=== PATIENT | male | born 1975 | race Caucasian/White ===

== ENCOUNTER 2017-06-14 11:30 | Inpatient (IN) | payer BC ==
[2017-06-14] VITALS (8 sets, daily range): BP systolic 147–168; BP diastolic 52–89; PULSE 72–80; TEMP 98–98.3
[~2017-06-14] VITALS: Ht 190.5 cm; Wt 127.9 kg
[2017-06-14] MEDS ORDERED: LEVEMIR100 U/ML SQ (14:18)
[2017-06-14 14:43] LABS: HEMATOCRIT 34.2 % (42.0-52.0); HEMOGLOBIN 10.9 g/dl (13.5-18.0); MEAN CELL VOLUME 86 fl (80.0-100.0); MEAN CORPUSCULAR HEMOGLOBIN 27 pg (27.0-31.0); MEAN CORPUSCULAR HGB CONC 32 g/dl (33.0-37.0); MEAN PLATELET VOLUME 8.9 fl (7.4-10.4); PLATELET COUNT 394 K/mm3 (130-400); RED BLOOD COUNT 3.98 M/mm3 (4.20-5.60); REDCELL DISTRIBUTION WIDTH-CV 15.5 % (11.5-14.5); WHITE BLOOD COUNT 11.6 K/mm3 (4.8-10.8)
[2017-06-14 14:44] LABS: ADD PATHOLOGY DIFF REVIEW NO
[2017-06-14 14:50] LABS: INR 1.3 (0.8-3.0); PROTHROMBIN TIME 14.1 SECONDS (9.7-12.8)
[2017-06-14 14:53] LABS: ADJUSTED CALCIUM 9.4 mg/dL (8.4-10.2); ALBUMIN 2.9 gm/dL (3.5-5.0); BILIRUBIN,TOTAL 1.1 mg/dL (0.0-1.0); CALCIUM 8.5 mg/dL (8.4-10.2); CREATININE, serum 0.91 mg/dL (0.66-1.25); MAGNESIUM 1.7 mg/dL (1.6-2.3); POTASSIUM 3.6 mmol/L (3.4-5.0)
[2017-06-14 15:12] LABS: ANISOCYTOSIS 1+; BAND 3 % (0-10); EOSINOPHIL 2 % (0-4); NEUTROPHILS 76 % (42.0-75.2); TOTAL CELLS COUNTED 100
[2017-06-14 15:13] LABS: PLATELET ESTIMATE INCREASED (NORMAL)
[2017-06-15 00:08] LABS: PH 5 (5-8); SQUAMOUS EPITHELIAL None Seen /hpf; URINE APPEARANCE Clear; URINE BACTERIA None Seen /hpf; URINE BILIRUBIN Negative (NEGATIVE); URINE BLOOD Negative (NEGATIVE); URINE COLOR Yellow; URINE GLUCOSE Negative (NEGATIVE); URINE KETONE Negative (NEGATIVE); URINE RBC 0-2 /hpf; URINE UROBILINOGEN Negative (NEGATIVE); URINE WBC 0-2 /hpf
[2017-06-15 01:00] VITALS: BP 159/81; PULSE 72; TEMP 98.2
[2017-06-15 05:30] VITALS: BP 168/91; PULSE 66; TEMP 98.5
[2017-06-15 07:10] LABS: MEAN CELL VOLUME 87 fl (80.0-100.0); MEAN CORPUSCULAR HGB CONC 32 g/dl (33.0-37.0); PLATELET COUNT 358 K/mm3 (130-400); RED BLOOD COUNT 3.66 M/mm3 (4.20-5.60); REDCELL DISTRIBUTION WIDTH-CV 15.5 % (11.5-14.5); WHITE BLOOD COUNT 9.3 K/mm3 (4.8-10.8)
[2017-06-15 07:12] LABS: ADD PATHOLOGY DIFF REVIEW NO; HEMATOCRIT 31.7 % (42.0-52.0); HEMOGLOBIN 10.1 g/dl (13.5-18.0); MEAN CORPUSCULAR HEMOGLOBIN 28 pg (27.0-31.0)
[2017-06-15 07:25] LABS: CALCIUM 7.9 mg/dL (8.4-10.2); CREATININE, serum 0.88 mg/dL (0.66-1.25); POTASSIUM 3.2 mmol/L (3.4-5.0)
[2017-06-15 08:36] LABS: BAND 21 % (0-10); BASOPHIL 3 % (0-2); EOSINOPHIL 2 % (0-4); METAMYELOCYTE 1 % (0-0); NEUTROPHILS 53 % (42.0-75.2); TOTAL CELLS COUNTED 100
[2017-06-15 08:38] LABS: PLATELET ESTIMATE NORMAL (NORMAL); TOXIC GRANULATION PRESENT
[2017-06-15 09:56] VITALS: BP 133/88; PULSE 86; TEMP 97.8
[2017-06-15 14:10] VITALS: BP 139/75; PULSE 80; TEMP 98.6
[2017-06-15 17:48] VITALS: BP 156/87; PULSE 81; TEMP 98.1
[2017-06-15 20:31] VITALS: BP 152/79; PULSE 83; TEMP 98.4
[2017-06-16] VITALS (7 sets, daily range): BP systolic 107–156; BP diastolic 52–90; PULSE 74–88; TEMP 97.5–98.4
[2017-06-16 11:22] LABS: MEAN CELL VOLUME 88 fl (80.0-100.0); MEAN CORPUSCULAR HGB CONC 31 g/dl (33.0-37.0); MEAN PLATELET VOLUME 9.1 fl (7.4-10.4); PLATELET COUNT 445 K/mm3 (130-400); RED BLOOD COUNT 4.02 M/mm3 (4.20-5.60); REDCELL DISTRIBUTION WIDTH-CV 15.8 % (11.5-14.5); WHITE BLOOD COUNT 10.7 K/mm3 (4.8-10.8)
[2017-06-16 11:33] LABS: ADD PATHOLOGY DIFF REVIEW NO; HEMATOCRIT 35.2 % (42.0-52.0); HEMOGLOBIN 10.9 g/dl (13.5-18.0); MEAN CORPUSCULAR HEMOGLOBIN 27 pg (27.0-31.0)
[2017-06-16 11:56] LABS: CALCIUM 8.1 mg/dL (8.4-10.2); CREATININE, serum 0.91 mg/dL (0.66-1.25)
[2017-06-16 12:23] LABS: BAND 12 % (0-10); EOSINOPHIL 4 % (0-4); NEUTROPHILS 61 % (42.0-75.2); TOTAL CELLS COUNTED 100
[2017-06-16 12:25] LABS: ANISOCYTOSIS 1+; PLATELET ESTIMATE INCREASED (NORMAL)
[2017-06-17 06:04] VITALS: BP 152/85; PULSE 88; TEMP 97.7
[2017-06-17 06:40] LABS: POTASSIUM 4.3 mmol/L (3.4-5.0)
[2017-06-17 06:48] LABS: VANCOMYCIN TROUGH 15.64 ug/mL (7.00-20.00)
[2017-06-17 09:26] VITALS: BP 167/94; PULSE 78; TEMP 97.9
[2017-06-17 16:45] VITALS: BP 149/78; PULSE 75; TEMP 98
[2017-06-17 22:15] VITALS: BP 155/80; PULSE 83; TEMP 98.4
[2017-06-18 02:15] VITALS: BP 137/69; PULSE 80; TEMP 98
[2017-06-18 05:17] VITALS: BP 150/89; PULSE 78; TEMP 97.7
[2017-06-18 07:30] LABS: HEMATOCRIT 37.7 % (42.0-52.0)
[2017-06-18 09:05] VITALS: BP 151/89; PULSE 82; TEMP 97.5
[2017-06-18 13:18] VITALS: BP 123/74; PULSE 81; TEMP 97.5
[2017-06-18 17:12] VITALS: BP 156/94; PULSE 74; TEMP 97.5
[2017-06-18 21:14] VITALS: BP 134/80; PULSE 83; TEMP 97.8
[2017-06-19] VITALS (11 sets, daily range): BP systolic 112–151; BP diastolic 73–90; PULSE 68–88; TEMP 97.1–97.8
[2017-06-19 08:10] LABS: HEMATOCRIT 38.7 % (42.0-52.0); HEMOGLOBIN 12.3 g/dl (13.5-18.0); MEAN CELL VOLUME 86 fl (80.0-100.0); MEAN CORPUSCULAR HEMOGLOBIN 28 pg (27.0-31.0); MEAN CORPUSCULAR HGB CONC 32 g/dl (33.0-37.0); MEAN PLATELET VOLUME 8.6 fl (7.4-10.4); PLATELET COUNT 523 K/mm3 (130-400); RED BLOOD COUNT 4.48 M/mm3 (4.20-5.60); REDCELL DISTRIBUTION WIDTH-CV 15.8 % (11.5-14.5); WHITE BLOOD COUNT 11.7 K/mm3 (4.8-10.8)
[2017-06-19 08:11] LABS: CALCIUM 8.5 mg/dL (8.4-10.2); CREATININE, serum 0.95 mg/dL (0.66-1.25); POTASSIUM 3.8 mmol/L (3.4-5.0)
[2017-06-19 08:13] LABS: ADD PATHOLOGY DIFF REVIEW NO
[2017-06-19 10:27] LABS: BAND 3 % (0-10); BASOPHIL 1 % (0-2); EOSINOPHIL 4 % (0-4); METAMYELOCYTE 1 % (0-0); NEUTROPHILS 65 % (42.0-75.2); PLATELET ESTIMATE INCREASED (NORMAL); TOTAL CELLS COUNTED 100
[2017-06-20 01:42] VITALS: BP 133/83; PULSE 76; TEMP 98
[2017-06-20 05:36] VITALS: BP 126/75; PULSE 80; TEMP 98
[2017-06-20 05:45] LABS: HEMATOCRIT 37.9 % (42.0-52.0); HEMOGLOBIN 12.1 g/dl (13.5-18.0)
[2017-06-20 06:04] LABS: CALCIUM 8.6 mg/dL (8.4-10.2); CREATININE, serum 1.01 mg/dL (0.66-1.25); POTASSIUM 4.4 mmol/L (3.4-5.0)
[2017-06-20 09:36] VITALS: BP 132/75; PULSE 83; TEMP 98.1
[2017-06-20 13:41] VITALS: BP 130/77; PULSE 84; TEMP 98
[2017-06-20 17:35] VITALS: BP 142/82; PULSE 81; TEMP 98.6
[2017-06-20 22:01] VITALS: BP 122/73; PULSE 93; TEMP 98.3
[2017-06-21 05:36] VITALS: BP 126/81; PULSE 83; TEMP 98.3
[2017-06-21 07:00] LABS: POTASSIUM 4.1 mmol/L (3.4-5.0)
[2017-06-21 07:18] LABS: VANCOMYCIN TROUGH 17.38 ug/mL (7.00-20.00)
[2017-06-21 10:51] VITALS: BP 119/67; PULSE 86; TEMP 97.9
== END 2017-06-21 11:05 | DRG 617 ==
LOC: MEDICAL 11:30 → SURG 13:28
PROVIDERS: Internal Medicine; Nurse Practitioner Family; Orthopaedic Surgery; Physician Assistant
PROC: 3E01329 Introduction of Other Anti-infective into Subcutaneous Tissue, Percutaneous Approach (ICD-10-PCS; 2017-06-14)
PROC: 0Y6J0Z3 Detachment at Left Lower Leg, Low, Open Approach (ICD-10-PCS; principal; 2017-06-14 16:00)
PROC: 0JDP0ZZ Extraction of Left Lower Leg Subcutaneous Tissue and Fascia, Open Approach (ICD-10-PCS; 2017-06-17)
PROC: 3E00X29 Introduction of Other Anti-infective into Skin and Mucous Membranes, External Approach (ICD-10-PCS; 2017-06-17)
PROC: 0HXLXZZ Transfer Left Lower Leg Skin, External Approach (ICD-10-PCS; 2017-06-19)
PROC: 02HV33Z Insertion of Infusion Device into Superior Vena Cava, Percutaneous Approach (ICD-10-PCS; 2017-06-20)
DX: E11.69 Type 2 diabetes mellitus with other specified complication (principal); R78.81 Bacteremia; M86.8X7 Other osteomyelitis, ankle and foot; D50.9 Iron deficiency anemia, unspecified; E11.610 Type 2 diabetes mellitus with diabetic neuropathic arthropathy; B95.62 Methicillin resistant Staphylococcus aureus infection as the cause of diseases classified elsewhere; E87.6 Hypokalemia; M65.172 Other infective (teno)synovitis, left ankle and foot; I10 Essential (primary) hypertension; Z89.422 Acquired absence of other left toe(s)
CPT/HCPCS: 99223-AI; 99232-AI; 99233-AI; 99238; A9284; C1713; C1751; J0690; J1644; J1650; J1815; J2250; J2405; J2704; J2765; J3010; J3260; J3370; J7030; J7050; J7120

== ENCOUNTER 2017-06-21 11:15 | Inpatient (IN) | payer BC ==
[~2017-06-21] VITALS: Ht 188 cm; Wt 105.4 kg
[2017-06-21 11:00] VITALS: BP 106/65; PULSE 101; TEMP 98.2
[~2017-06-21 11:15] MED LIST: LEVEMIR100 U/ML SQ
[2017-06-22 04:40] VITALS: BP 77/63; PULSE 84; TEMP 98.4
[2017-06-22 19:16] VITALS: BP 130/80; PULSE 80; TEMP 97.7
[2017-06-23 05:24] VITALS: BP 125/71; PULSE 85; TEMP 97.9
[2017-06-23 16:34] VITALS: BP 118/82; PULSE 85; TEMP 97.6
[2017-06-24 05:51] VITALS: BP 121/74; PULSE 86; TEMP 98.4
[2017-06-24 19:03] VITALS: BP 141/88; PULSE 79; TEMP 97.7
[2017-06-25 06:33] LABS: HEMATOCRIT 37.8 % (42.0-52.0)
[2017-06-25 06:35] LABS: HEMOGLOBIN 11.9 g/dl (13.5-18.0)
[2017-06-25 06:45] LABS: CALCIUM 9.6 mg/dL (8.4-10.2); CREATININE, serum 0.92 mg/dL (0.66-1.25); MAGNESIUM 1.9 mg/dL (1.6-2.3); POTASSIUM 4.2 mmol/L (3.4-5.0)
[2017-06-25 06:57] VITALS: BP 124/78; PULSE 84; TEMP 98.5
[2017-06-25 07:00] LABS: VANCOMYCIN TROUGH 20.82 ug/mL (7.00-20.00)
[2017-06-25 17:21] VITALS: BP 124/79; PULSE 92; TEMP 97.5
[2017-06-26 06:10] VITALS: BP 114/57; PULSE 74; TEMP 98.5
[2017-06-26 19:00] VITALS: BP 120/76; PULSE 86; TEMP 97
[2017-06-27 05:48] VITALS: BP 107/61; PULSE 82; TEMP 98.5
[2017-06-27 16:51] VITALS: BP 134/84; PULSE 84; TEMP 97.6
[2017-06-28 06:50] VITALS: BP 132/94; PULSE 82; TEMP 97.6
[2017-06-28 07:56] LABS: CALCIUM 9.5 mg/dL (8.4-10.2); CREATININE, serum 0.94 mg/dL (0.66-1.25); POTASSIUM 4.1 mmol/L (3.4-5.0)
[2017-06-28] MEDS ORDERED: NORVASC 5MG5 MG/TAB PO (12:34)
[2017-06-28] MEDS ORDERED: ZESTRIL 10MG10 MG PO (12:34)
[2017-06-28] MEDS ORDERED: ROXICODONE 55 MG/TAB PO (12:35)
[2017-06-28] MEDS ORDERED: ULTRAM 50MG TAB50 MG PO (12:35)
[2017-06-28] MEDS ORDERED: LEVEMIR100 U/ML SQ (12:36)
[2017-06-28] MEDS ORDERED: LOTRIMIN45CR TOP (12:49)
== END 2017-06-28 14:40 | disposition home or self-care (01) | DRG 560 ==
PROVIDERS: Family Medicine; Internal Medicine
DX: Z47.81 Encounter for orthopedic aftercare following surgical amputation (principal); M86.9 Osteomyelitis, unspecified; R53.81 Other malaise; Z89.512 Acquired absence of left leg below knee; Z79.4 Long term (current) use of insulin; I10 Essential (primary) hypertension; B35.6 Tinea cruris; E11.40 Type 2 diabetes mellitus with diabetic neuropathy, unspecified; D64.9 Anemia, unspecified; A49.02 Methicillin resistant Staphylococcus aureus infection, unspecified site
CPT/HCPCS: 99222-AI; 99232-AI; 99239; J1644; J1650; J1815; J3370; J7050

== ENCOUNTER → 2020-05-04 | Outpatient (CLI) | payer BC ==
[~2020-05-04] MED LIST changes: +LOTRIMIN45CR TOP; +NORVASC 5MG5 MG/TAB PO; +ROXICODONE 55 MG/TAB PO; +ULTRAM 50MG TAB50 MG PO; +ZESTRIL 10MG10 MG PO
== END ==
LOC: COL.LAB 09:20
DX: Z01.812 Encounter for preprocedural laboratory examination (principal); Z20.828 Contact with and (suspected) exposure to other viral communicable diseases

== ENCOUNTER → 2021-03-07 | Outpatient (CLI) | payer BC ==
[~2021-03-07] MED LIST changes: +ASPIRIN 81M81 MG/TA2 PO; +CRESTOR20 MG PO; +CUBICIN 500MG500 MG IV; +GLUCOPHAGE1000 MG PO; +PRINIVIL10 MG PO; +TRULICITY0.75 MG/0. SQ; +ZOFRAN ODT4 MG PO
== END ==
LOC: COL.RAD 12:55
DX: M86.8X7 Other osteomyelitis, ankle and foot (principal)
CPT/HCPCS: A9585

== ENCOUNTER 2021-03-18 08:00 | Outpatient (RCR) | payer BC ==
[2021-02-18 10:01] VITALS: BP 145/93; PULSE 75; TEMP 98.4
[2021-02-18 10:21] LABS: BASO % 0.5 % (0.0-2.0); EOS # 0.3 (0.0-0.7); EOS % 3.3 % (0-4.0); GRAN # 5.1 (1.4-6.5); GRAN % 61.8 % (42.2-75.2); HEMATOCRIT 39.2 % (42.0-52.0); HEMOGLOBIN 13.4 g/dl (13.5-18.0); LYMPH # 2.2 (1.2-3.4); LYMPH % 26.6 % (20.0-51.0); MEAN CELL VOLUME 83 fl (80.0-100.0); MEAN CORPUSCULAR HEMOGLOBIN 28 pg (27.0-31.0); MEAN CORPUSCULAR HGB CONC 34 g/dl (33.0-37.0); MEAN PLATELET VOLUME 9.4 fl (7.4-10.4); MONO # 0.6 (0.1-0.6); MONO % 7.3 % (1.7-9.3); PLATELET COUNT 235 K/mm3 (130-400); RED BLOOD COUNT 4.74 M/mm3 (4.20-5.60); REDCELL DISTRIBUTION WIDTH-CV 13.6 % (11.5-14.5)
[2021-02-18 10:37] LABS: ALANINE AMINOTRANSFERASE 16 U/L (4-49); ALBUMIN 3.7 gm/dL (3.5-5.0); ALKALINE PHOSPHATASE 68 U/L (50-136); ANION GAP 8 mmol/L (7-16); AST,SGOT 24 U/L (15-37); BILIRUBIN,TOTAL 0.5 mg/dL (0.0-1.0); BLOOD UREA NITROGEN 25 mg/dL (9-20); CALCIUM 8.7 mg/dL (8.4-10.2); CARBON DIOXIDE 21 mmol/L (22-30); CHLORIDE 109 mmol/L (98-107); CREATINE KINASE 168 U/L (55-170); CREATININE, serum 1.11 (0.66-1.25); GLUCOSE 92 mg/dL (74-106); POTASSIUM 4.2 mmol/L (3.4-5.0); SODIUM 138 mmol/L (137-145); TOTAL PROTEIN 7.9 gm/dL (6.4-8.2)
[2021-02-18 10:38] LABS: C-REACTIVE PROTEIN < 0.5 mg/dL (0.0-0.9)
[2021-02-18 10:46] LABS: ERYTHROCYTE SEDIMENTATION RATE 13 mm/hr (0-15)
[2021-02-25 09:09] VITALS: BP 129/81; PULSE 77; TEMP 97.8
[2021-02-25 09:33] LABS: BASO # 0.1 (0.0-0.2); BASO % 0.6 % (0.0-2.0); EOS # 0.3 (0.0-0.7); EOS % 3.2 % (0-4.0); GRAN # 5.2 (1.4-6.5); GRAN % 58.2 % (42.2-75.2); HEMATOCRIT 40.8 % (42.0-52.0); HEMOGLOBIN 13.9 g/dl (13.5-18.0); LYMPH # 2.8 (1.2-3.4); LYMPH % 31.6 % (20.0-51.0); MEAN CELL VOLUME 84 fl (80.0-100.0); MEAN CORPUSCULAR HEMOGLOBIN 29 pg (27.0-31.0); MEAN CORPUSCULAR HGB CONC 34 g/dl (33.0-37.0); MEAN PLATELET VOLUME 9.7 fl (7.4-10.4); MONO # 0.6 (0.1-0.6); MONO % 6.2 % (1.7-9.3); PLATELET COUNT 228 K/mm3 (130-400); RED BLOOD COUNT 4.84 M/mm3 (4.20-5.60); REDCELL DISTRIBUTION WIDTH-CV 13.8 % (11.5-14.5)
[2021-02-25 09:43] LABS: ALBUMIN 4.1 gm/dL (3.5-5.0); BILIRUBIN,TOTAL 0.8 mg/dL (0.0-1.0); C-REACTIVE PROTEIN 0.6 mg/dL (0.0-0.9); CREATININE, serum 1.13 (0.66-1.25); POTASSIUM 4.1 mmol/L (3.4-5.0); TOTAL PROTEIN 8.4 gm/dL (6.4-8.2)
[2021-02-25 10:02] LABS: ERYTHROCYTE SEDIMENTATION RATE 1 mm/hr (0-15)
[2021-03-04 09:39] LABS: BASO % 0.5 % (0.0-2.0); EOS # 0.5 (0.0-0.7); EOS % 6.2 % (0-4.0); GRAN # 4.7 (1.4-6.5); GRAN % 56.9 % (42.2-75.2); HEMATOCRIT 41.7 % (42.0-52.0); HEMOGLOBIN 13.9 g/dl (13.5-18.0); LYMPH # 2.5 (1.2-3.4); MEAN CELL VOLUME 85 fl (80.0-100.0); MEAN CORPUSCULAR HEMOGLOBIN 28 pg (27.0-31.0); MEAN CORPUSCULAR HGB CONC 33 g/dl (33.0-37.0); MEAN PLATELET VOLUME 9.6 fl (7.4-10.4); MONO # 0.5 (0.1-0.6); MONO % 6.2 % (1.7-9.3); PLATELET COUNT 215 K/mm3 (130-400); RED BLOOD COUNT 4.93 M/mm3 (4.20-5.60)
[2021-03-04 09:55] LABS: ALBUMIN 4.1 gm/dL (3.5-5.0); BILIRUBIN,TOTAL 0.6 mg/dL (0.0-1.0); C-REACTIVE PROTEIN 0.6 mg/dL (0.0-0.9); CALCIUM 8.9 mg/dL (8.4-10.2); CREATININE, serum 1.21 (0.66-1.25); POTASSIUM 4.3 mmol/L (3.4-5.0); TOTAL PROTEIN 8.2 gm/dL (6.4-8.2)
[2021-03-04 09:58] LABS: ERYTHROCYTE SEDIMENTATION RATE 11 mm/hr (0-15)
[2021-03-04 10:30] VITALS: BP 131/84; PULSE 79; TEMP 98.1
[2021-03-11 09:03] VITALS: BP 130/83; PULSE 85; TEMP 97.6
[2021-03-11 09:24] LABS: BASO # 0.1 (0.0-0.2); BASO % 0.5 % (0.0-2.0); EOS # 0.6 (0.0-0.7); EOS % 5.5 % (0-4.0); GRAN # 7.4 (1.4-6.5); GRAN % 67.2 % (42.2-75.2); HEMATOCRIT 40.2 % (42.0-52.0); HEMOGLOBIN 13.5 g/dl (13.5-18.0); LYMPH # 2.2 (1.2-3.4); LYMPH % 19.5 % (20.0-51.0); MEAN CELL VOLUME 85 fl (80.0-100.0); MEAN CORPUSCULAR HEMOGLOBIN 28 pg (27.0-31.0); MEAN CORPUSCULAR HGB CONC 34 g/dl (33.0-37.0); MEAN PLATELET VOLUME 9.6 fl (7.4-10.4); MONO # 0.8 (0.1-0.6); MONO % 6.8 % (1.7-9.3); PLATELET COUNT 205 K/mm3 (130-400); RED BLOOD COUNT 4.75 M/mm3 (4.20-5.60); REDCELL DISTRIBUTION WIDTH-CV 13.9 % (11.5-14.5)
[2021-03-11 09:39] LABS: BILIRUBIN,TOTAL 0.9 mg/dL (0.0-1.0); C-REACTIVE PROTEIN 3.2 mg/dL (0.0-0.9); CALCIUM 8.6 mg/dL (8.4-10.2); CREATININE, serum 1.08 (0.66-1.25); TOTAL PROTEIN 8.2 gm/dL (6.4-8.2)
[2021-03-11 09:44] LABS: ERYTHROCYTE SEDIMENTATION RATE 25 mm/hr (0-15)
[~2021-03-18] VITALS: Ht 190.5 cm; Wt 134.4 kg
[~2021-03-18 08:00] MED LIST changes: -ZOFRAN ODT4 MG PO
[2021-03-18 09:00] VITALS: BP 132/92; PULSE 78
[2021-05-08] MEDS ORDERED: ZOFRAN ODT4 MG PO (16:54)
== END 2021-03-18 09:15 | disposition still patient (30) ==
LOC: EUO 08:00
PROVIDERS: Internal Medicine Infectious Disease
DX: Z45.2 Encounter for adjustment and management of vascular access device (principal); M86.9 Osteomyelitis, unspecified
CPT/HCPCS: C1751; C1892; J0878

== ENCOUNTER 2022-02-12 12:29 | Inpatient (IN) | payer OTHER ==
[~2022-02-12] VITALS: Ht 190.5 cm; Wt 136.4 kg
[~2022-02-12 12:29] MED LIST changes: +ZOFRAN ODT4 MG PO
[2022-02-12 13:33] LABS: BASO # 0.1 K/mm3 (0.0-0.2); BASO % 0.5 % (0.0-2.0); EOS # 0.3 K/mm3 (0.0-0.7); EOS % 2.6 % (0.0-4.0); GRAN # 7.1 K/mm3 (1.4-6.5); HEMATOCRIT 44.3 % (42.0-52.0); HEMOGLOBIN 15.3 g/dl (13.5-18.0); LYMPH # 1.4 K/mm3 (1.2-3.4); LYMPH % 14.6 % (20.0-51.0); MEAN CELL VOLUME 83 fl (80.0-100.0); MEAN CORPUSCULAR HEMOGLOBIN 29 pg (27-31); MEAN CORPUSCULAR HGB CONC 35 g/dl (33.0-37.0); MEAN PLATELET VOLUME 9.3 fl (7.4-10.4); MONO # 0.7 K/mm3 (0.1-0.6); MONO % 7.7 % (1.7-9.3); PLATELET COUNT 219 K/mm3 (130-400); RED BLOOD COUNT 5.37 M/mm3 (4.20-5.60); REDCELL DISTRIBUTION WIDTH-CV 13.2 % (11.5-14.5)
[2022-02-12 13:47] LABS: BILIRUBIN,TOTAL 0.5 mg/dL (0.2-1.2); C-REACTIVE PROTEIN 8.1 mg/dL (0.00-0.50); CALCIUM 8.8 mg/dL (8.4-10.2); CREATININE, serum 1.43 mg/dL (0.72-1.25); POTASSIUM 4.6 mmol/L (3.5-4.5); TOTAL PROTEIN 7.9 gm/dL (6.2-8.1)
[2022-02-12] MEDS ORDERED: AVELOX 400MG T400 MG PO (14:49)
--- NOTE | 2022-02-12 19:11 | NUR ---
PT SITTING UP IN CHAIR WITH AT BEDSIDE. PT STATES THAT FOOT HAS NO PAIN. DOES HAVE AN ABD AND KERLIX DRESSING ON. PT STATES NO NEEDS AT THIS TIME. CALL LIGHT IS WITHIN REACH.
[2022-02-12 20:18] VITALS: BP 159/72; PULSE 79; TEMP 98.8
--- NOTE | 2022-02-12 21:31 | NUR ---
Patient A/Ox4. Patient independent in the room. Patient denies any pain or discomfort. Patient has right foot diabetic ulcer and would covered with dressing. Dressing has minimal drainage and some odor. Patient states dressing just got changed this afternoon and refused to get changed at this time. Per patient, will get changed after he wakes up in the morning. BS 260 this evening. Scheduled insulin given per MAR. Patient states he hasn't been taking insulins at home, and his diabetes is mostly diet controlled. Educated patient about importance of taking insulins since his blood sugar level is so high. Patient verbalized understanding. IVF infusing well per MAR. IV site C/D/I. Call light in reach. Will continue to monitor.
[2022-02-12 23:48] VITALS: BP 134/74; PULSE 76; TEMP 97.8
[2022-02-13 03:49] VITALS: BP 132/73; PULSE 72; TEMP 98
--- NOTE | 2022-02-13 03:58 | NUR ---
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 ht 190.5 cm wt 136.4 kg (Adj wt 105.3 kg) SCr 1.43 with estimated CrCl >60 ml/min half life 15.7 hours Plan: Patient may not follow population based kinetics secondary to body habitus (BMI 37.8 kg/m2). Patient received an initial loading dose of vancomycin 2000 mg x1 in the ED; will give a supplemental loading dose of vancomycin 750 mg x1 for a total loading dose of 2750 mg (20.2 mg/kg); followed by a maintenance regimen of vancomycin 1500 mg q12h to target a goal trough of 20-25 mcg/ml. Will follow patient's renal function, micro data, and vancomycin levels as indicated to assess for any necessary changes to regimen. Thank you for this dosing consult.
[2022-02-13 06:32] LABS: HEMATOCRIT 42.1 % (42.0-52.0); HEMOGLOBIN 14.4 g/dl (13.5-18.0); MEAN CELL VOLUME 84 fl (80.0-100.0); MEAN CORPUSCULAR HEMOGLOBIN 29 pg (27-31); MEAN CORPUSCULAR HGB CONC 34 g/dl (33.0-37.0); MEAN PLATELET VOLUME 9.4 fl (7.4-10.4); PLATELET COUNT 227 K/mm3 (130-400); RED BLOOD COUNT 5.02 M/mm3 (4.20-5.60); REDCELL DISTRIBUTION WIDTH-CV 13.2 % (11.5-14.5)
[2022-02-13 06:54] LABS: CALCIUM 8.8 mg/dL (8.4-10.2); CREATININE, serum 1.17 mg/dL (0.72-1.25); MAGNESIUM 1.8 mg/dL (1.6-2.6)
[2022-02-13 07:22] LABS: ERYTHROCYTE SEDIMENTATION RATE 40 mm/hr (0-15)
[2022-02-13 08:02] VITALS: BP 146/88; PULSE 76; TEMP 97.9
[2022-02-13 08:03] LABS: BASOPHIL 1 % (0-2); EOSINOPHIL 8 % (0-4); LYMPHOCYTE 26 % (20.0-51.0)
[2022-02-13 08:04] LABS: BAND 4 % (0-10); NEUTROPHILS 52 % (42.0-75.2); PLATELET ESTIMATE NORMAL (NORMAL)
--- NOTE | 2022-02-13 09:10 | NUR ---
PT UP IN WHEELCHAIR TO GO TO MRI. PT HAS NO COMPLAINTS. RIGHT FOOT HAS ABD AND KERLIX DRESSING OVER IT. STRONG ODOR COMING FROM IT. PT STATES NO PAIN AT THIS TIME. PT OFF FLOOR TO MRI.
--- NOTE | 2022-02-13 09:10 | NUR ---
PT LAYING SUPINE IN BED ON ROOM AIR. PT STATES NO NEEDS AT THIS TIME. RIGHT FOOT HAS DRESSING THAT IS CLEAN, DRY AND INTACT. PT STATES NO PAIN. PT TO GO TO MRI. CALL LIGHT IS WITHIN REACH.
--- NOTE | 2022-02-13 10:23 | NUR ---
Social Work student met with patient to discuss discharge planning. Patient lives in [place] with his , Jeanette(ph#[phone]). Patient sees Dr. Suggs for primary care. Patient receives his medications from [facility] in [place] with no cost difficulties. Patient states that he uses a walker when he does not have his prosthetic leg on regarding durable medical equiptment. Patient states that he is independent with his ADL's. Patient reports that he does not have a DPOA-HC. Patient reported that he was interested in taking a copy. SW provided him with a DPOA-HC form. *Discharge Plan: Home*
[2022-02-13 12:20] VITALS: BP 145/87; PULSE 81; TEMP 97.8
[2022-02-13 16:45] VITALS: BP 144/83; PULSE 76; TEMP 97.7
--- NOTE | 2022-02-13 18:52 | NUR ---
PT LAYING SUPINE IN BED. PT STATES THAT HIS LEFT STUMP IS IN NEED OF A BANDAGE. MEPILEX WAS PLACED ON STUMP. PT STATES NO PAIN AT THIS TIME. RIGHT FOOT DRESSING IS DRY AND IN TACT. CALL LIGHT IS WITHIN REACH.
[2022-02-13 19:31] VITALS: BP 149/82; PULSE 75; TEMP 98.6
--- NOTE | 2022-02-13 20:45 | NUR ---
Initial shift assessment done- denies pain in the right foot, all wrapped up--going to OR tomorrow- strong smell from foot, will be NPO after MN, alert/oriented, very pleasant, did give a HS snack tonight, PICC to FOZIA- getting IV fluids of NS at 100cc/hr and IV antibiotics as ordered.
[2022-02-13 23:41] VITALS: BP 134/86; PULSE 81; TEMP 97.6
[2022-02-14] VITALS (12 sets, daily range): BP systolic 114–145; BP diastolic 67–89; PULSE 72–82; TEMP 97.7–98.6
--- NOTE | 2022-02-14 05:01 | NUR ---
Did sleep for a few hours during the night- has been NPO since HI for OR at 1230 today, denies pain to right foot- right foot dressing remains dry
--- NOTE | 2022-02-14 14:25 | NUR ---
Patient back to the floor following procedure. Dynamap attached to patient for post ops. Patient denies any pain, discomofort SOA, or further needs at this time. VSS. Patient A&O. Patient currenlty requiring 3L of O2 via nasal cannula. Wound vac in place. Family at the bedside.
--- NOTE | 2022-02-14 19:45 | NUR ---
Scheduled medications given. Shift assessment performed. Patient on contact percautions for history of MRSA. Patient had I&D procedure done today and wound vac was place, diet progressed without N/V. Post Op vitals completed. VSS. Patient A&O. Patient denies any pain, discomfort, SOA, or further needs at this time. Call light in reach. Fall percautions in place.
--- NOTE | 2022-02-14 21:03 | NUR ---
Initial shift assessment done- VSS,Pt states OR went well today-- right foot all wrapped, covcered with aleyda wrap-- has wound vac to that right foot with sero/sang/brownish drainage- patient denies any pain, ice to right foot. Ate good supper/taking good p.o, no other requests.
[2022-02-15 00:32] VITALS: BP 130/65; PULSE 79; TEMP 98.5
[2022-02-15 03:49] LABS: HEMATOCRIT 39.4 % (42.0-52.0); HEMOGLOBIN 13.8 g/dl (13.5-18.0); MEAN CELL VOLUME 83 fl (80.0-100.0); MEAN CORPUSCULAR HEMOGLOBIN 29 pg (27-31); MEAN CORPUSCULAR HGB CONC 35 g/dl (33.0-37.0); MEAN PLATELET VOLUME 9.1 fl (7.4-10.4); PLATELET COUNT 180 K/mm3 (130-400); RED BLOOD COUNT 4.77 M/mm3 (4.20-5.60); REDCELL DISTRIBUTION WIDTH-CV 12.9 % (11.5-14.5)
[2022-02-15 04:04] LABS: CALCIUM 8.1 mg/dL (8.4-10.2); CREATININE, serum 1.16 mg/dL (0.72-1.25); POTASSIUM 4.2 mmol/L (3.5-4.5)
[2022-02-15 04:10] LABS: BAND 6 % (0-10); EOSINOPHIL 3 % (0-4); LYMPHOCYTE 14 % (20.0-51.0); METAMYELOCYTE 1 % (0-0); NEUTROPHILS 72 % (42.0-75.2); PLATELET ESTIMATE NORMAL (NORMAL)
[2022-02-15 05:14] VITALS: BP 125/57; PULSE 92; TEMP 98.5
--- NOTE | 2022-02-15 05:46 | NUR ---
Quiet night-- VSS, pt denies any pain- wound vac to right foot- getting antibiotics per PICC line
[2022-02-15 07:15] VITALS: BP 136/74; PULSE 79; TEMP 98.2
--- NOTE | 2022-02-15 08:50 | NUR ---
Shift assessment complete. Pt resting in bed, A&Ox4. Vitals stable. Consent signed and placed on chart for surgery on right foot tomorrow. Pt denies pain or other complaints. Dressing to right foot CDI, wound vac in place w/sanguinous drainage, no s/s complication.
[2022-02-15 11:30] VITALS: BP 126/81; PULSE 81; TEMP 98.2
[2022-02-15 15:45] VITALS: BP 130/65; PULSE 79; TEMP 97.5
--- NOTE | 2022-02-15 18:40 | NUR ---
IV ABX GIVEN ORDERED. INFECTIOUS DISEASE CONSULTED. PT DENIES PAIN. WOUND VAC IN PLACE W/O S/S COMPLICATION. BLOOD SUGARS IMPROVED THROUGHOUT DAY, MOST RECENT 123.
[2022-02-15 21:05] VITALS: BP 129/76; PULSE 88; TEMP 98.4
[2022-02-16] VITALS (12 sets, daily range): BP systolic 111–152; BP diastolic 59–85; PULSE 71–88; TEMP 97.9–98.7
--- NOTE | 2022-02-16 05:27 | NUR ---
Pt had an uneventful night, no adverse events. Remains alert and oriented when awake, pt rested majority of the night. Continues to deny pain. Vital signs remain stable. Pt is afebrile. HR is 70-80 range. Wound vac remains on the right foot and foot is wrapped in aleyda bandage. Pt has had great urine output overnight. Pt has been NPO since 0000. Administered vancomycin and zosyn per orders. Pt reports no questions. Will continue to monitor, no concerns at this time.
--- NOTE | 2022-02-16 12:00 | NUR ---
Patient back to room following procedure. Dynamap in use for post op vitals. VSS. Patient A&O Patient currently SATing 97% on 2L of O2. Patient denies any pain, discomfort, SOA, or further needs at this time. Effected extremity elevated and ice pack in place. at the bedside. Report recieved from RAFAEL Whatley.
--- NOTE | 2022-02-16 18:30 | NUR ---
Patient has had an ok day. I&D on right foot completed. Wound vac in place. Patient states that he doesn't have any pain at this time. Occassional burning sensation when moving toes, but it is tolerable. VSS. Patient A&O. Scheduled medications given. Shift assessment performed. Patient denies any further needs at this time. Call light in reach. Fall percaautions in place. PICC in place. Flushes with good blood return.
[2022-02-17 00:27] VITALS: BP 102/60; PULSE 76; TEMP 97.9
[2022-02-17 04:09] VITALS: BP 110/61; PULSE 73; TEMP 98.4
--- NOTE | 2022-02-17 05:16 | NUR ---
RESTED THROUGH THE NIGHT WITHOUT INCDIDENT. AM LABS, ANTIBOTICS. CALL LIGHT WI REACH.
[2022-02-17 07:10] LABS: CALCIUM 7.9 mg/dL (8.4-10.2); CREATININE, serum 1.17 mg/dL (0.72-1.25); POTASSIUM 4.9 mmol/L (3.5-4.5)
[2022-02-17 07:35] LABS: HEMATOCRIT 41.6 % (42.0-52.0); HEMOGLOBIN 14.2 g/dl (13.5-18.0); MEAN CELL VOLUME 84 fl (80.0-100.0); MEAN CORPUSCULAR HEMOGLOBIN 29 pg (27-31); MEAN CORPUSCULAR HGB CONC 34 g/dl (33.0-37.0); PLATELET COUNT 215 K/mm3 (130-400); RED BLOOD COUNT 4.98 M/mm3 (4.20-5.60)
[2022-02-17 07:56] LABS: BAND 5 % (0-10); EOSINOPHIL 6 % (0-4); LYMPHOCYTE 12 % (20.0-51.0); NEUTROPHILS 71 % (42.0-75.2); PLATELET ESTIMATE NORMAL (NORMAL)
[2022-02-17 08:09] VITALS: BP 114/63; PULSE 75; TEMP 98.2
--- NOTE | 2022-02-17 09:56 | NUR ---
Scheduled medications given. Shift assessment performed. Patient states that he has a burning sensation in right foot. States that it is at a tolerable level at this time. PICC line in place. Flushes well, sluggish blood return noted. VSS. Patient A&O. Wound Vac in place, scant drainage noted. Patient denies any further pain, disccomfort, SOA, or further needs at this time. Call light in place. Fall percautions in place.
[2022-02-17 12:03] VITALS: BP 144/79; PULSE 84; TEMP 98.5
--- NOTE | 2022-02-17 15:32 | NUR ---
Patient scheduled to go back to the OR on Sunday to have the wound vac removed and to see if it help. Unknow at this time if the patient will go home with a wound vac or not.
[2022-02-17 16:12] VITALS: BP 129/66; PULSE 78; TEMP 98.6
--- NOTE | 2022-02-17 19:28 | NUR ---
Patient has had an uneventful day. Denies any pain, discomfort, SOA, or further needs at this time. VSS. Patient A&O. Call light in reach. Fall percautions in place.
--- NOTE | 2022-02-17 19:29 | NUR ---
Wound vac in place with scant drainage.
[2022-02-17 20:54] VITALS: BP 146/82; PULSE 79; TEMP 98.3
--- NOTE | 2022-02-17 23:29 | NUR ---
ALERT AND OX4. PT DENIES PAIN, SOA, CHEST PAIN. PICC TO RT UPPER ARM. ANTIBOTICS, PM MEDS. BLOOD SUGAR TX PER SLIDING SCALE. POC DISCUSSED. PT WILL BE HERE THRU AND POSSIBLE ANOTHER I/D SUNDAY. CALL LIGHT WI REACH.
[2022-02-18] VITALS (7 sets, daily range): BP systolic 111–152; BP diastolic 55–88; PULSE 61–79; TEMP 97.8–98.4
--- NOTE | 2022-02-18 06:30 | NUR ---
THE PATIENT IS IN BED AT THIS TIME.
[2022-02-18 07:34] LABS: HEMATOCRIT 41.3 % (42.0-52.0); HEMOGLOBIN 13.8 g/dl (13.5-18.0); MEAN CELL VOLUME 85 fl (80.0-100.0); MEAN CORPUSCULAR HEMOGLOBIN 29 pg (27-31); MEAN CORPUSCULAR HGB CONC 33 g/dl (33.0-37.0); MEAN PLATELET VOLUME 9.2 fl (7.4-10.4); PLATELET COUNT 218 K/mm3 (130-400); RED BLOOD COUNT 4.85 M/mm3 (4.20-5.60); REDCELL DISTRIBUTION WIDTH-CV 13.1 % (11.5-14.5)
[2022-02-18 07:50] LABS: CALCIUM 8.7 mg/dL (8.4-10.2); CREATININE, serum 1.13 mg/dL (0.72-1.25)
[2022-02-18 08:40] LABS: BAND 2 % (0-10); EOSINOPHIL 4 % (0-4); METAMYELOCYTE 1 % (0-0); PLATELET ESTIMATE NORMAL (NORMAL)
[2022-02-18 08:41] LABS: LYMPHOCYTE 20 % (20.0-51.0); NEUTROPHILS 68 % (42.0-75.2)
--- NOTE | 2022-02-18 22:44 | NUR ---
PT DENIES ANY PAIN, SOA OR DIZZY. PM MEDS GIVEN. ANTIBOTICS INFUSING. BS- INR THIS EVENING. LEVAMIR GIVEN. POC DISCUSSED. CALL LIGHT WI REACH. DSG TO RT LOWER LEG C/D/I.
[2022-02-19 04:20] VITALS: BP 131/91; PULSE 69; TEMP 98
--- NOTE | 2022-02-19 06:30 | NUR ---
PT SLEEPING AT THIS TIME. WILL RETURN FOR ASSESSMENT.
[2022-02-19 07:19] LABS: HEMATOCRIT 43.6 % (42.0-52.0); HEMOGLOBIN 14.8 g/dl (13.5-18.0); MEAN CELL VOLUME 83 fl (80.0-100.0); MEAN CORPUSCULAR HEMOGLOBIN 28 pg (27-31); MEAN CORPUSCULAR HGB CONC 34 g/dl (33.0-37.0); MEAN PLATELET VOLUME 9.2 fl (7.4-10.4); PLATELET COUNT 239 K/mm3 (130-400); RED BLOOD COUNT 5.23 M/mm3 (4.20-5.60); REDCELL DISTRIBUTION WIDTH-CV 12.9 % (11.5-14.5)
[2022-02-19 07:39] LABS: CREATININE, serum 1.15 mg/dL (0.72-1.25); POTASSIUM 3.9 mmol/L (3.5-4.5)
[2022-02-19 08:06] VITALS: BP 135/82; PULSE 70; TEMP 98.2
--- NOTE | 2022-02-19 08:25 | NUR ---
Patient in bed, does not complain of any pain or needs at this time.
[2022-02-19 08:42] LABS: BAND 3 % (0-10); EOSINOPHIL 1 % (0-4); LYMPHOCYTE 28 % (20.0-51.0); NEUTROPHILS 64 % (42.0-75.2); PLATELET ESTIMATE NORMAL (NORMAL)
[2022-02-19 11:36] VITALS: BP 143/91; PULSE 75; TEMP 97.9
[2022-02-19 16:14] VITALS: BP 136/85; PULSE 69; TEMP 98.5
[2022-02-19 20:26] VITALS: BP 134/80; PULSE 79; TEMP 97.5
--- NOTE | 2022-02-19 21:55 | NUR ---
PT AWAITING POSSIBLE I/D OF RT TOE IN AM. WILL BE NPO AT MIDNIGHT. DENIES PAIN, SOA, CHEST PAIN OR DIZZY. HAS NOT HAD BM, SENNA GIVEN. ANTIBOTICS CONTINUE. POC DISCUSSED. CALL LIGHT WI REACH.
[2022-02-20 00:48] VITALS: BP 115/50; PULSE 73; TEMP 97.5
[2022-02-20 04:43] VITALS: BP 126/84; PULSE 68; TEMP 97.5
--- NOTE | 2022-02-20 05:58 | NUR ---
RESTED THROUGH THE NIGHT WITHOUT INCIDENT. IV ANTIBOTICS INFUSING. HAS BEEN NPO FOR PROCEDURE.
--- NOTE | 2022-02-20 06:55 | NUR ---
THE PATIENT IS NPO FOR POSSIBLE I&D TODAY. NO OTHER CONCERNS AT THIS TIME.
[2022-02-20 07:13] VITALS: BP 137/83; PULSE 80; TEMP 97.7
--- NOTE | 2022-02-20 08:23 | NUR ---
Patient laying in bed alert and orientated. No further needs right now.
[2022-02-20 11:58] VITALS: BP 134/94; PULSE 97; TEMP 97.6
[2022-02-20] MEDS ORDERED: DULCOLAX TAB5 MG PO (12:22)
[2022-02-20] MEDS ORDERED: NORCO 325 MG-51 TAB PO ×3 (12:23→12:34)
[2022-02-20] MEDS ORDERED: AMOXICILLIN 8751 TAB PO (12:33)
[2022-02-20] MEDS ORDERED: BD ALCOHOL1 SWA MC (12:53)
[2022-02-20] MEDS ORDERED: GLUCOSE TEST ST1 DEV MC (12:53)
[2022-02-20] MEDS ORDERED: FREESTYLE PREC1 EAC5 MC (12:53)
[2022-02-20] MEDS ORDERED: LANCETS MC (12:53)
[2022-02-20] MEDS ORDERED: GLUCOPHAGE1000 MG PO (13:01)
[2022-02-20] MEDS ORDERED: ASPIRIN 81M81 MG/TA2 PO (13:02)
[2022-02-20] MEDS ORDERED: TRULICITY0.75 MG/0. SQ (13:02)
[2022-02-20] MEDS ORDERED: PRINIVIL10 MG PO (13:02)
== END 2022-02-20 16:45 | disposition home or self-care (01) | DRG 617 ==
LOC: COL.ER 12:29 → MEDICAL 15:17
PROVIDERS: Nurse Practitioner; Orthopaedic Surgery; Physician Assistant; ADMIT Internal Medicine
PROC: 02HV33Z Insertion of Infusion Device into Superior Vena Cava, Percutaneous Approach (ICD-10-PCS; 2022-02-13)
PROC: 0JBQ0ZZ Excision of Right Foot Subcutaneous Tissue and Fascia, Open Approach (ICD-10-PCS; 2022-02-14)
PROC: 0JBQ0ZZ Excision of Right Foot Subcutaneous Tissue and Fascia, Open Approach (ICD-10-PCS; 2022-02-16)
PROC: 0Y6R0Z0 Detachment at Right 2nd Toe, Complete, Open Approach (ICD-10-PCS; principal; 2022-02-16 10:30)
DX: E11.621 Type 2 diabetes mellitus with foot ulcer (principal); L97.419 Non-pressure chronic ulcer of right heel and midfoot with unspecified severity; E87.2 Acidosis; L03.031 Cellulitis of right toe; L97.519 Non-pressure chronic ulcer of other part of right foot with unspecified severity; E11.42 Type 2 diabetes mellitus with diabetic polyneuropathy; E11.22 Type 2 diabetes mellitus with diabetic chronic kidney disease; N18.9 Chronic kidney disease, unspecified; D64.9 Anemia, unspecified; I12.9 Hypertensive chronic kidney disease with stage 1 through stage 4 chronic kidney disease, or unspecified chronic kidney disease; E87.5 Hyperkalemia; E66.9 Obesity, unspecified; Z68.37 Body mass index [BMI] 37.0-37.9, adult; B95.2 Enterococcus as the cause of diseases classified elsewhere; Z89.512 Acquired absence of left leg below knee
CPT/HCPCS: 99223-AI; 99231-AI; 99232-AI; 99233-AI; 99239; A6550; A9575; C1751; J1650; J1815; J2405; J2543; J2704; J3010; J3370; J7030; J7040; J7050; L4386